=== PATIENT | male | born 1945 | race Caucasian/White ===

== ENCOUNTER 2020-02-17 18:22 | Emergency (ER) | payer MEDICARE ==
[2020-02-17] MEDS ORDERED: Cyclobenzaprine 10 MG Tab PO ONE (18:51)
[2020-02-17] MEDS ORDERED: HYDROmorphone 1 MG/ML Syringe IM ONE (18:51)
--- NOTE | 2020-02-17 18:54 | EDM.PDOC ---
ED HPI GENERAL MEDICAL PROBLEM - General Chief Complaint: Neck Problem Stated Complaint: NECK CRAMPS Time Seen by Provider: 02/17/20 18:48 Source of Information: Reports: Patient, RN Notes Reviewed History Limitations: Reports: No Limitations - History of Present Illness INITIAL COMMENTS - FREE TEXT/NARRATIVE: 74-year-old gentleman presents emergency department today complaint of neck pain predominantly on the right side he injured himself when he was backing out of his vehicle and twisted his head sharp he is experiencing pain predominantly lower neck upper shoulder region. Right Neck Pain Score (Numeric/FACES): 10 - Related Data Allergies Allergy/AdvReac Type Severity Reaction Status Date / Time No Known Allergies Allergy Verified 02/17/20 18:40 Home Meds: Home Meds Metoprolol Succinate 1 tab PO DAILY 02/17/20 [History] Omeprazole 1 tab PO DAILY 02/17/20 [History] Simvastatin 1 tab PO DAILY 02/17/20 [History] metFORMIN [Glucophage] 1,000 mg PO BIDMEALS 02/17/20 [History] Past Medical History HEENT History: Reports: Impaired Vision Cardiovascular History: Reports: High Cholesterol, Hypertension Gastrointestinal History: Reports: GERD Neurological History: Reports: Alzheimers Disease Endocrine/Metabolic History: Reports: Diabetes, Type II - Infectious Disease History Infectious Disease History: Reports: Measles - Past Surgical History Head Surgeries/Procedures: Reports: None HEENT Surgical History: Reports: Cataract Surgery Cardiovascular Surgical History: Reports: Coronary Artery Bypass Other Cardiovascular Surgeries/Procedures: 1999 GI Surgical History: Reports: Hernia, Inguinal Endocrine Surgical History: Reports: None Neurological Surgical History: Reports: None Musculoskeletal Surgical History: Reports: Shoulder Surgery Dermatological Surgical History: Reports: None Social & Family History - Tobacco Use Smoking Status *Q: Former Smoker Used Tobacco, but Quit: No Month/Year Tobacco Last Used: 1967 Second Hand Smoke Exposure: No - Caffeine Use Caffeine Use: Reports: None - Recreational Drug Use Recreational Drug Use: No ED ROS GENERAL - Review of Systems Review Of Systems: See Below Constitutional: Denies: Fever, Chills HEENT: Reports: No Symptoms Respiratory: Reports: No Symptoms Cardiovascular: Reports: No Symptoms GI/Abdominal: Reports: No Symptoms Musculoskeletal: Reports: Neck Pain ED EXAM, UPPER BACK/NECK PAIN - Physical Exam Exam: See Below Exam Limited By: No Limitations General Appearance: Alert, WD/WN, No Apparent Distress Neck Exam: Normal Alignment, Normal Inspection, Limited Range of Motion, Muscle Spasm, Painful Range of Motion, Paraspinous Muscle Tender, Tender Lateral. No: Spinous Processes Tender, Tender Midline Cardiovascular/Respiratory: No Respiratory Distress Course - Vital Signs Last Recorded V/S: Last Vital Signs Temp 97.9 F 02/17/20 18:41 Pulse 69 02/17/20 18:41 Resp 16 02/17/20 18:41 BP 211/93 H 02/17/20 19:26 Pulse Ox 96 02/17/20 18:41 - Orders/Labs/Meds Meds: Medications Discontinued Medications Generic Name Dose Route Start Last Admin Trade Name Delvinq PRN Reason Stop Dose Admin Cyclobenzaprine HCl 10 mg 02/17/20 18:51 02/17/20 19:00 Flexeril PO 02/17/20 18:52 10 mg ONETIME ONE Administration Hydromorphone HCl 0.5 mg 02/17/20 18:51 02/17/20 19:00 Dilaudid IM 02/17/20 18:52 0.5 mg ONETIME ONE Administration Departure - Departure Time of Disposition: 19:49 Disposition: Home, Self-Care 01 Condition: Fair Clinical Impression: Neck muscle spasm - Discharge Information Instructions: Muscle Cramps and Spasms Referrals: Reji Mercedes MD [Primary Care Provider] - Forms: ED Department Discharge Additional Instructions: Use ibuprofen for baseline pain control, use Flexeril as needed for muscle spasms, use hydrocodone as needed for breakthrough pain, please followup with your primary care provider in 3-5 days if not better, please call return to the emergency department with worsening of symptoms. Sepsis Event Note - Evaluation Sepsis Screening Result: No Definite Risk - Focused Exam Vital Signs: Vital Signs Temp Pulse Resp BP Pulse Ox 02/17/20 19:26 211/93 H 02/17/20 18:41 97.9 F 69 16 238/97 H 96 02/17/20 18:39 97.9 F 69 16 238/97 H 96 Date Exam was Performed: 02/17/20 Time Exam was Performed: 19:48 - Assessment/Plan Plan: Assessment Acuity = acute Site and laterality = neck spasm Etiology = secondary to twisting injury Manifestations = none Location of injury = Home Lab values = none Plan He had good relief combination Flexeril and hydromorphone, prescription written for hydrocodone 5/325 1 tab p.o. 3 times daily PRN total 10 as well as Flexeril 1 tab p.o. 3 times daily PRN total #30 him follow-up with his primary care in 5 to 7 days if no improvement This note was dictated using [employer] recognition software please call with any questions on syntax or grammar.
== END 2020-02-17 19:59 | disposition home or self-care (01) ==
LOC: JP.ED 18:22
DX: M62.838 Other muscle spasm (principal); E11.9 Type 2 diabetes mellitus without complications; G30.9 Alzheimer's disease, unspecified; F02.80 Dementia in other diseases classified elsewhere, unspecified severity, without behavioral disturbance, psychotic disturbance, mood disturbance, and anxiety; E78.00 Pure hypercholesterolemia, unspecified; I10 Essential (primary) hypertension; Z79.84 Long term (current) use of oral hypoglycemic drugs; Z79.899 Other long term (current) drug therapy
CPT/HCPCS: 96372; 99283; A9270; J1170